=== PATIENT | male | born 1975 | race Caucasian/White ===

== ENCOUNTER 2024-05-17 10:40 | Day surgery (SDC) | payer OTHER ==
[~2024-05-17] VITALS: Ht 170.2 cm; Wt 74.6 kg
[~2024-05-17 10:40] MED LIST: NS 500 ML IV ONE
[2024-05-17] MEDS ORDERED: NS 1,000 ML IV ONE (11:19)
[2024-05-17] MEDS ORDERED: propofoL 20 ML IV ONE (11:57)
[2024-05-17] MEDS ORDERED: FentaNYL Citrate 50 MCG/ML 2 ML Injection ONE (11:59)
== END 2024-05-17 12:50 | disposition home or self-care (01) ==
LOC: ORSCSDS 10:40
PROVIDERS: Orthopaedic Surgery
PROC: 0JNJ0ZZ Release Right Hand Subcutaneous Tissue and Fascia, Open Approach (ICD-10-PCS; principal; 2024-05-17 12:15)
DX: R22.30 Localized swelling, mass and lump, unspecified upper limb (principal); M79.641 Pain in right hand; M72.0 Palmar fascial fibromatosis [Dupuytren]; F32.A Depression, unspecified; F17.210 Nicotine dependence, cigarettes, uncomplicated
CPT/HCPCS: 88305; J2704; J3010; J7040